=== PATIENT | female | born 1980 | race Two or more races ===

== ENCOUNTER 2018-06-20 01:34 | Emergency (ER) | payer MEDICAID ==
[~2018-06-20] VITALS: Ht 152.4 cm; Wt 77.1 kg
[2018-06-20 01:47] VITALS: BP 163/88
[2018-06-20] MEDS ORDERED: FLUORESCEIN SOD 1 MG TEST STRIP RIGHTEYE ONE (02:30)
[2018-06-20] MEDS ORDERED: TETRACAINE HCL 0.5% OPTH(EYE) SOLN 4ML RIGHTEYE ONE (02:30)
== END 2018-06-20 02:52 | disposition home or self-care (01) ==
LOC: ER 01:42
DX: H01.001 Unspecified blepharitis right upper eyelid (principal); H02.841 Edema of right upper eyelid

== ENCOUNTER 2018-10-20 20:47 | Emergency (ER) | payer MEDICAID ==
[~2018-10-20] VITALS: Ht 152.4 cm; Wt 75.7 kg
[2018-10-20 22:56] LABS: Basophils # (auto) 0.1 uL; Basophils % (auto) 0.4 % (0.0-2.0); Eosinophils # (auto) 0.2 uL; Eosinophils % (auto) 1.5 % (0.0-7.0); Hematocrit 41.7 % (36.0-46.0); Hemoglobin 13.7 g/dL (12.2-16.2); Lymphocytes % (auto) 20.4 % (10.0-50.0); Mean Corpuscular Hemoglobin 27.5 pg (28.0-32.0); Mean Corpuscular Hgb Conc. 32.8 g/dL (32.0-36.0); Mean Corpuscular Volume 83.9 fL (80.0-100.0); Monocytes # (auto) 1.2 uL; Monocytes % (auto) 8.3 % (0.0-12.0); Neutrophils # (auto) 10.1 uL; Neutrophils % (auto) 69.4 % (37.0-80.0); Platelet Count (auto) 324 10^3/uL (140-450); Red Blood Cells 4.97 10^6/uL (4.0-5.20); Red Cell Distribution Width 16.1 % (11.8-14.3); White Blood Cell 14.6 10^3/uL (4.4-10.8)
[2018-10-20 23:15] LABS: Albumin 3.6 g/dL (3.4-5.0); BUN/Creatinine Ratio 7.9; Calcium 8.3 mg/dL (8.5-10.1); Magnesium 2.1 mg/dL (1.6-2.6); Potassium 3.3 mmol/L (3.5-5.1)
[2018-10-20 23:18] LABS: Bilirubin, Total 0.6 mg/dL (0.2-1.0); Total Protein 7.9 g/dL (6.4-8.2)
[2018-10-20 23:21] LABS: Urine Bacteria NONE SEEN /hpf (None Seen); Urine Blood Negative /uL (Negative); Urine Specific Gravity 1.006 (1.001-1.035); Urine WBC 4 /hpf (0 - 5)
[2018-10-21] MEDS ORDERED: SODIUM CHLORIDE 0.9% 1,000 ML IV ONE ×2 (06:24→07:08)
[2018-10-21] MEDS ORDERED: cefTRIAXone 1GM/50ML D5W 50 ML IV ONE (06:30)
[2018-10-21] MEDS ORDERED: KETOROLAC TROMETH 30 MG/ML 1ML VIAL IV ONE (07:15)
[2018-10-21] MEDS ORDERED: METOCLOPRAMIDE HCL 5MG/ml INJ 2ml VIAL IV ONE (07:15)
[2018-10-21] MEDS ORDERED: POTASSIUM EFFERVESENT TAB 25 MEQ PO ONE (08:45)
[2018-10-21 11:00] VITALS: BP 111/64
== END 2018-10-21 12:13 | disposition home or self-care (01) ==
LOC: ER 20:50
DX: N83.201 Unspecified ovarian cyst, right side (principal); N39.0 Urinary tract infection, site not specified; E87.6 Hypokalemia; M34.1 CR(E)ST syndrome
CPT/HCPCS: 36415; 74176; 76856; 80053; 81001; 83690; 83735; 84702; 85025; 96365; 96375; 99284; J0696; J1885; J2765; J7030

== ENCOUNTER 2023-03-09 08:38 | Emergency (ER) | payer MEDICAID ==
[~2023-03-09] VITALS: Ht 152.4 cm; Wt 72.6 kg
[~2023-03-09 08:38] MED LIST: AMLO1TAB22 PO; APIX5TAB OR; CLIN300C70 PO; HYDR200T36 PO; LEVO500T31 PO; OMEP20TA PO
[2023-03-09 08:54] LABS: Basophils # (auto) 0.1 10 ^3/uL (0-0.2); Basophils % (auto) 0.6 % (0.0-2.0); Eosinophils # (auto) 0.3 10 ^3/uL (0-0.8); Eosinophils % (auto) 2.3 % (0.0-7.0); Hematocrit 46.3 % (36.0-46.0); Hemoglobin 15.2 g/dL (12.2-16.2); Lymphocytes # (auto) 2.5 10 ^3/uL (0.4-5.4); Lymphocytes % (auto) 22.3 % (10.0-50.0); Mean Corpuscular Hemoglobin 28.8 pg (28.0-32.0); Mean Corpuscular Hgb Conc. 32.8 g/dL (32.0-36.0); Mean Corpuscular Volume 87.9 fL (80.0-100.0); Monocytes # (auto) 0.8 10 ^3/uL (0-1.3); Monocytes % (auto) 7.5 % (0.0-12.0); Neutrophils # (auto) 7.5 10 ^3/uL (1.6-8.6); Neutrophils % (auto) 67.3 % (37.0-80.0); Nucleated Red Blood Cells % 0.2 %; Red Blood Cells 5.27 10^6/uL (4.0-5.20); Red Cell Distribution Width 14.9 % (11.8-14.3); White Blood Cell 11.1 10^3/uL (4.4-10.8)
[2023-03-09] MEDS ORDERED: ASPirin 81 mg TAB PO ONE (09:00)
[2023-03-09 09:10] LABS: Alanine Aminotransferase 21 U/L (7-40); Alkaline Phosphatase 95 U/L (46-116); Anion Gap 8 (5-15); Aspartate Aminotransferase 13 U/L (13-40); BUN/Creatinine Ratio 17.7 (10.0-20.0); Blood Urea Nitrogen 14 mg/dL (9-23); Calcium 9.4 mg/dL (8.5-10.1); Carbon Dioxide 28 mmol/L (20-30); Chloride 107 mmol/L (98-107); Glucose 105 mg/dL (74-106); Potassium 3.6 mmol/L (3.5-5.1); Sodium 143 mmol/L (136-145)
[2023-03-09 09:11] LABS: Albumin 4.6 g/dL (3.2-4.8); Bilirubin, Total 0.8 mg/dL (0.2-1.0); Total Protein 7.5 g/dL (5.7-8.2)
[2023-03-09 09:13] LABS: Urine Bacteria FEW /hpf (None Seen); Urine Blood Negative /uL (Negative); Urine Clarity Clear (Clear); Urine Protein, UAD Negative (Negative); Urine Specific Gravity 1.009 (1.001-1.035); Urine Sperm PRESENT /hpf (None Seen); Urine Urobilinogen Normal (Negative); Urine WBC 17 /hpf (0 - 5)
[2023-03-09 09:13] LABS: INR 0.94 (0.9-1.15); Partial Thromboplastin Time 28.3 SEC (24.5-34.5); Prothrombin Time 9.9 sec (9.3-11.8)
[2023-03-09 09:16] LABS: Urine Color Straw (Yellow)
[2023-03-09] MEDS ORDERED: CIPR-173 PO (09:41)
[2023-03-09 10:32] VITALS: TEMP 98.1
[2023-03-09] MEDS: cloNIDine HCL 0.1 MG TAB PO ONE ×2 (10:47→10:51)
[2023-03-09 11:55] VITALS: BP 145/90; PULSE 89; RESP 16; O2SAT 99
== END 2023-03-09 12:01 | disposition home or self-care (01) ==
LOC: ER 08:38
DX: R07.9 Chest pain, unspecified (principal); N39.0 Urinary tract infection, site not specified; D72.829 Elevated white blood cell count, unspecified; F12.10 Cannabis abuse, uncomplicated; Z88.6 Allergy status to analgesic agent; Z88.5 Allergy status to narcotic agent; Z79.899 Other long term (current) drug therapy; Z32.02 Encounter for pregnancy test, result negative; Z90.710 Acquired absence of both cervix and uterus
CPT/HCPCS: 36415; 70450; 71045; 80053; 81001; 81025; 83735; 83880; 84484; 85025; 85379; 85610; 85730; 93005

== ENCOUNTER 2023-08-29 09:54 | Inpatient (IN) | payer MEDICAID ==
[~2023-08-29] VITALS: Ht 154.9 cm; Wt 78.0 kg
[~2023-08-29 09:54] MED LIST changes: +CIPR-173 PO; +CLIN1CAP70 PO; -CLIN300C70 PO
[2023-08-29 10:24] LABS: Basophils # (auto) 0 10 ^3/uL (0-0.2); Basophils % (auto) 0.6 % (0.0-2.0); Eosinophils # (auto) 0.2 10 ^3/uL (0-0.8); Eosinophils % (auto) 2.3 % (0.0-7.0); Hematocrit 42.6 % (36.0-46.0); Hemoglobin 14.5 g/dL (12.2-16.2); Lymphocytes # (auto) 2.3 10 ^3/uL (0.4-5.4); Lymphocytes % (auto) 25.7 % (10.0-50.0); Mean Corpuscular Hemoglobin 29.8 pg (28.0-32.0); Mean Corpuscular Hgb Conc. 34.1 g/dL (32.0-36.0); Mean Corpuscular Volume 87.3 fL (80.0-100.0); Monocytes # (auto) 0.6 10 ^3/uL (0-1.3); Monocytes % (auto) 6.6 % (0.0-12.0); Neutrophils # (auto) 5.8 10 ^3/uL (1.6-8.6); Neutrophils % (auto) 64.8 % (37.0-80.0); Red Blood Cells 4.88 10^6/uL (4.0-5.20); Red Cell Distribution Width 14.4 % (11.8-14.3)
[2023-08-29 11:06] LABS: Alanine Aminotransferase 52 U/L (7-40); Albumin 4.3 g/dL (3.2-4.8); Alkaline Phosphatase 99 U/L (46-116); Anion Gap 11 (5-15); Aspartate Aminotransferase 15 U/L (13-40); BUN/Creatinine Ratio 11.7 (10.0-20.0); Blood Urea Nitrogen 7 mg/dL (9-23); Calcium 9.2 mg/dL (8.7-10.4); Carbon Dioxide 22 mmol/L (20-30); Chloride 107 mmol/L (98-107); Glucose 99 mg/dL (74-106); Magnesium 1.9 mg/dL (1.6-2.6); Potassium 3.9 mmol/L (3.5-5.1); Sodium 140 mmol/L (136-145)
[2023-08-29 11:07] LABS: Bilirubin, Total 0.7 mg/dL (0.2-1.0); Total Protein 7.2 g/dL (5.7-8.2)
[2023-08-29 12:02] LABS: Amphetamine Screen, Urine Neg (NEGATIVE)
[2023-08-29 12:03] LABS: Barbiturate Scree,Urine Neg (NEGATIVE); Benzodiazephine Screen, Urine Neg (NEGATIVE); Cannabinoid Screen, Urine Neg (NEGATIVE); Cocaine Screen, Urine Neg (NEGATIVE); Opiate Scree,Urine Neg (NEGATIVE); Phencyclidine Screen, Urine Neg (NEGATIVE)
[2023-08-29] MEDS: NITROGLYCERIN 0.4 MG SL TAB SL ONE (13:02)
[2023-08-29] MEDS: ASPirin 325 MG TAB PO ONE (13:08)
[2023-08-29] MEDS ORDERED: ONDANSETRON HCL 4 MG/2 ML VIAL IV PRN (14:45)
[2023-08-29] MEDS ORDERED: NITROGLYCERIN 0.4 MG SL TAB SL PRN ×2 (14:45)
[2023-08-29] MEDS: ENOXAPARIN SOD 80 MG/0.8ML SYRINGE SC SCH (15:46)
[2023-08-29 16:12] LABS: INR 0.98 (0.9-1.15); Prothrombin Time 10.4 sec (9.3-11.8)
[2023-08-29 22:00] VITALS: PULSE 88; RESP 18; O2SAT 96
[2023-08-29] MEDS: ATORVASTATIN 20 MG TAB PO SCH (22:45)
[2023-08-29] MEDS: METOPROLOL TARTRATE 25 MG TAB PO SCH (22:48)
[2023-08-30 01:00] VITALS: BP 114/78; PULSE 83; RESP 20; TEMP 98.1; O2SAT 93
[2023-08-30] MEDS ORDERED: METH2.5T PO (03:17)
[2023-08-30] MEDS ORDERED: FOLITAB22 PO (03:21)
[2023-08-30 05:00] VITALS: BP 117/71; PULSE 75; RESP 20; TEMP 98.1; O2SAT 97
[2023-08-30 06:47] LABS: Alanine Aminotransferase 41 U/L (7-40); Albumin 3.9 g/dL (3.2-4.8); Alkaline Phosphatase 89 U/L (46-116); Anion Gap 7 (5-15); Aspartate Aminotransferase 16 U/L (13-40); BUN/Creatinine Ratio 10.8 (10.0-20.0); Basophils # (auto) 0.1 10 ^3/uL (0-0.2); Basophils % (auto) 0.7 % (0.0-2.0); Blood Urea Nitrogen 7 mg/dL (9-23); Calcium 8.8 mg/dL (8.5-10.1); Carbon Dioxide 24 mmol/L (20-30); Chloride 107 mmol/L (98-107); Cholesterol 170 mg/dL (< 200); Eosinophils # (auto) 0.3 10 ^3/uL (0-0.8); Eosinophils % (auto) 2.7 % (0.0-7.0); Glucose 91 mg/dL (74-106); HDL Cholesterol 38 mg/dL (40-59); Hematocrit 39.8 % (36.0-46.0); Hemoglobin 13.5 g/dL (12.2-16.2); LDL Cholesterol 122 mg/dL (< 100); Lymphocytes # (auto) 3.8 10 ^3/uL (0.4-5.4); Lymphocytes % (auto) 38.3 % (10.0-50.0); Mean Corpuscular Hemoglobin 30.1 pg (28.0-32.0); Mean Corpuscular Hgb Conc. 33.9 g/dL (32.0-36.0); Mean Corpuscular Volume 88.9 fL (80.0-100.0); Monocytes # (auto) 0.7 10 ^3/uL (0-1.3); Monocytes % (auto) 7.6 % (0.0-12.0); Neutrophils % (auto) 50.7 % (37.0-80.0); Nucleated Red Blood Cells % 0.1 %; Potassium 3.4 mmol/L (3.5-5.1); Red Blood Cells 4.48 10^6/uL (4.0-5.20); Red Cell Distribution Width 14.9 % (11.8-14.3); Sodium 138 mmol/L (136-145); Triglycerides 128 mg/dL (< 150); White Blood Cell 9.8 10^3/uL (4.4-10.8)
[2023-08-30 06:48] LABS: Bilirubin, Total 0.6 mg/dL (0.2-1.0); Total Protein 6.6 g/dL (5.7-8.2)
[2023-08-30 08:00] VITALS: PULSE 72; O2SAT 96
[2023-08-30 08:51] VITALS: BP 118/70; PULSE 76; RESP 16; TEMP 97.9; O2SAT 97
[2023-08-30] MEDS: DOCUSATE SOD 100 MG CAP PO SCH (10:00)
[2023-08-30] MEDS: ASPirin 81 mg TAB PO SCH (10:26)
[2023-08-30 13:00] VITALS: BP 124/70; PULSE 75; RESP 16; TEMP 98.1; O2SAT 96
[2023-08-30] MEDS: ACETAMINOPHEN 500 MG TAB PO PRN (13:46)
[2023-08-30] MEDS ORDERED: POTASSIUM CHL 20 Meq TABLET PO ONE (14:00)
[2023-08-30 16:25] LABS: Erythrocyte Sedimentation Rate 11 mm/hr (0-20)
[2023-08-30 16:52] VITALS: BP 116/67; PULSE 74; RESP 16; TEMP 98.3; O2SAT 97
[2023-08-30] MEDS ORDERED: ATORVASTATIN 20 MG TAB PO SCH (22:00)
== END 2023-08-30 18:57 | disposition home or self-care (01) | DRG 145 ==
LOC: ER 09:54 → TELE 14:48 → TELE-WESTW 21:38
PROVIDERS: ADMIT Internal Medicine; ATTEND Internal Medicine
DX: R09.1 Pleurisy (principal); M34.1 CR(E)ST syndrome; E66.9 Obesity, unspecified; M06.9 Rheumatoid arthritis, unspecified; I10 Essential (primary) hypertension; E78.5 Hyperlipidemia, unspecified; Z90.710 Acquired absence of both cervix and uterus; Z88.6 Allergy status to analgesic agent; Z98.82 Breast implant status; Z86.711 Personal history of pulmonary embolism; Z68.32 Body mass index [BMI] 32.0-32.9, adult
CPT/HCPCS: 36415; 71045; 80053; 80061; 80307; 83605; 83735; 83880; 84484; 85025; 85379; 85610; 85652; 86038; 86141; 93005; 93306; 93970; G0378